=== PATIENT | female | born 1960 | race Two or more races ===

== ENCOUNTER 2017-11-21 11:24 | Emergency (ER) | payer MEDICAID ==
[~2017-11-21] VITALS: Ht 157.5 cm; Wt 119.3 kg
[2017-11-21 11:37] VITALS: Ht 157.5 cm; Wt 119.3 kg
[2017-11-21 15:00] VITALS: BP 165/80
== END 2017-11-21 15:00 | disposition home or self-care (01) ==
LOC: ED 11:24
DX: M54.42 Lumbago with sciatica, left side (principal)

== ENCOUNTER 2017-11-28 13:33 | Emergency (ER) | payer MEDICAID ==
[~2017-11-28] VITALS: Ht 157.5 cm; Wt 118.8 kg
[2017-11-28 13:40] VITALS: Ht 157.5 cm; Wt 118.8 kg
[2017-11-28 15:28] VITALS: BP 130/64
== END 2017-11-28 15:14 | disposition home or self-care (01) ==
LOC: ED 13:33
DX: M54.5 Low back pain (principal); M54.32 Sciatica, left side
CPT/HCPCS: J1170; J1885; Q0162

== ENCOUNTER 2017-12-08 18:10 | Emergency (ER) | payer MEDICAID ==
[~2017-12-08] VITALS: Ht 157.5 cm; Wt 118.4 kg
[2017-12-08 19:03] VITALS: Ht 157.5 cm; Wt 118.4 kg
[2017-12-09 01:08] VITALS: BP 150/69
== END 2017-12-09 01:36 | disposition home or self-care (01) ==
LOC: ED 18:10
DX: M54.42 Lumbago with sciatica, left side (principal)